=== PATIENT | female | born 1990 | race Caucasian/White ===

== ENCOUNTER 2023-07-03 11:10 | Emergency (ER) | payer OTHER, SELFPAY ==
[2023-07-03 11:15] VITALS: BP 109/69; PULSE 93; RESP 16; TEMP 36.6; O2SAT 100
--- NOTE | 2023-07-03 11:53 | ED.URI ---
HPI - URI/Sore Throat General Chief Complaint: Upper Respiratory Infection Stated Complaint: needs strep test Time Seen by Provider: 07/03/23 11:42 Source: patient, RN notes reviewed and old records reviewed Mode of arrival: ambulatory Limitations: no limitations History of Present Illness HPI Narrative: 33 year old female who presents to [facility] care with complaints of sore throat, gland swelling especially to left neck. no known fevers chills or sweats or body aches. Patient reports that she has not had any nausea or vomiting, no sinus congestion or any cough noted or any shortness of breath. Patient reports positive exposure to strep her son tested positive for strep throat on Thursday in this clinic. MD elicited complaint: sore throat Onset (ago): day(s) (day 3 of symptoms) Pain scale (0-10): 2 Able to tolerate fluids by mouth: Yes Exacerbating factors: swallowing Treatments prior to arrival: ibuprofen Related Data Allergies Allergy/AdvReac Type Severity Reaction Status Date / Time Penicillins Allergy Severe Other Verified 07/03/23 11:26 Sulfa (Sulfonamide Allergy Unknown Rash Verified 07/03/23 11:28 Antibiotics) sulfamethizole Allergy Unknown Rash Verified 07/03/23 11:28 sulfamethoxazole Allergy Unknown Rash Verified 07/03/23 11:29 trimethoprim Allergy Unknown Rash Verified 07/03/23 11:29 Review of Systems Review of Systems: CONSTITUTIONAL: Denies malaise, chills, sweats, or fever. EYES: Denies visual changes, redness, or discharge. ENT: Reports no rhinorrhea, congestion, sinus pain,no otalgia positive for sore throat,left gland in neck swelling., . CARDIOVASCULAR: Denies chest pain, palpitations, or edema. RESPIRATORY: Reports no cough.? Denies dyspnea. GASTROINTESTINAL: Denies abdominal pain, nausea, vomiting, diarrhea SKIN: Denies rash or itching. MUSCULOSKELETAL: Denies myalgia. NEUROLOGIC: Denies headache. All systems reviewed & are unremarkable except as noted in HPI and below PMFSH Past Medical History Medical History (Updated 07/04/23 @ 08:11 by Sofía Zamora NP) Anemia Depression Migraines Seizures as child Surgical History Surgical History (Updated 07/04/23 @ 08:08 by Sofía Zamora NP) History of colposcopy (05/15/21) colposcopy ; Benign Hx of LASIK (2010) S/P wisdom tooth extraction Family History Family History Father Patient's father is in good health Mother Family history of cardiovascular disease Skin cancer Hypertension Heart disease Grandparent Cancer Heart disease Social History Social History Smoking status: Never smoker Alcohol intake: current Alcohol use details: 1 month Substance use: never Substance use type: does not use Living arrangements: other Additional living arrangements comments: Occupation/Education: occupation Additional occupation/education comments: accounting Gender identity (if verbalized by the patient): Female Sexual Orientation (if Verbalized by the Patient): Straight or Heterosexual Comments At time of signature, agree with nursing past medical, surgical, social and family history. There is no relevant family history pertinent to the presenting complaint Exam Narrative: GENERAL: Well-appearing, well-nourished, and in no acute distress. HEAD: Normocephalic EYES: PERRLA, conjunctivae clear ENT: Nares clear, turbinates edematous and erythematous, clear discharge. Mucous membranes moist. TM pearly young with dull light reflex bilaterally; no tragal tenderness. Oropharynx erythematous without lesions. Tonsils red enlarged and without exudate, no drooling, no hoarseness, no trismus, uvula midline and swollen. NECK: Supple. Left lymphadenopathy CHEST: Clear to auscultation, breath sounds equal. No wheezing, rhonchi, rales, or stridor. No respiratory distress, speaks in f
== END 2023-07-03 12:00 | disposition home or self-care (01) ==
PROVIDERS: Emergency Provider Registered Nurse; PCP Nurse Practitioner Family
DX: J03.90 Acute tonsillitis, unspecified (principal); Z20.818 Contact with and (suspected) exposure to other bacterial communicable diseases
CPT/HCPCS: 87081; 87880; 99213; G0463